=== PATIENT | male | born 1985 | race Caucasian/White ===

== ENCOUNTER 2022-02-25 22:29 | Emergency (ER) | payer OTHER | END 2022-02-26 00:27 | disposition home or self-care (01) | LOC: FER 22:29 | DX: M79.671 Pain in right foot (principal); F17.200 Nicotine dependence, unspecified, uncomplicated; X50.1XXA Overexertion from prolonged static or awkward postures, initial encounter; Z28.310 Unvaccinated for COVID-19 | CPT/HCPCS: 73610; 73630 ==

== ENCOUNTER 2022-07-09 09:44 | Emergency (ER) | payer OTHER ==
[2022-07-09] MEDS ORDERED: FLEXERIL5 MG PO ×3 (11:23→11:45)
[2022-07-09] MEDS ORDERED: NORCO 5-325 TA1 EACH PO ×3 (11:23→11:45)
== END 2022-07-09 11:55 | disposition home or self-care (01) ==
LOC: FER 09:44
DX: M54.50 Low back pain, unspecified (principal); F17.210 Nicotine dependence, cigarettes, uncomplicated; Z28.310 Unvaccinated for COVID-19; X50.0XXA Overexertion from strenuous movement or load, initial encounter; Y93.89 Activity, other specified; Y92.009 Unspecified place in unspecified non-institutional (private) residence as the place of occurrence of the external cause
CPT/HCPCS: 72100; J1885

== ENCOUNTER 2022-07-11 19:09 | Emergency (ER) | payer OTHER ==
[~2022-07-11 19:09] MED LIST: FLEXERIL5 MG PO; NORCO 5-325 TA1 EACH PO
[2022-07-11 20:17] LABS: BASOPHIL 0.4 % (0-2); EOSINOPHIL 0.2 % (0-5); HGB 16.1 g/dl (13.2-18.0); LYMPHOCYTE 16.1 % (15-48); MCH 29.9 pg (25.0-31.0); MCHC 34.3 g/dL (32.0-36.0); MCV 87.4 fL (78.0-100.0); MONOCYTE 7.1 % (0-12); MPV 10.5 fL (6.0-9.5); NRBC 0; PLT 162 K/uL (150-400); RBC 5.38 M/uL (4.70-6.00); RDW 12.2 % (11.5-14.0); WBC 8.1 K/uL (4.0-10.5)
[2022-07-11 20:37] LABS: ALBUMIN 3.6 g/dL (3.4-5.0); BILIRUBIN - TOTAL 0.2 mg/dL (0.2-1.0); BUN/CREAT RATIO (CALC) 12.3 RATIO; CREATININE 1.06 mg/dL (0.67-1.17); GLOBULIN (CALCULATION) 3.6 g/dL; POTASSIUM 2.9 mmol/L (3.5-5.1); TOTAL PROTEIN 7.2 g/dL (6.4-8.2)
[2022-07-11 21:19] LABS: INFLUENZA A NAA NEGATIVE (NEGATIVE)
[2022-07-11 21:24] LABS: CORONAVIRUS 2019 SARS-COV-2 POSITIVE (NEGATIVE)
[2022-07-11] MEDS ORDERED: PAXLOVID 300-11 EACH PO (21:47)
[2022-07-11] MEDS ORDERED: ONDANSETRON ODT4 MG PO (21:47)
== END 2022-07-11 22:09 | disposition home or self-care (01) ==
LOC: FER 19:09
PROVIDERS: Emergency Medicine
DX: F17.200 Nicotine dependence, unspecified, uncomplicated (principal); U07.1 COVID-19; R55 Syncope and collapse; Z28.310 Unvaccinated for COVID-19
CPT/HCPCS: 36415; 71045; 80053; 84484; 85025; 93005; J1885; J2405; J7030; U0002